=== PATIENT | female | born 1965 | race Caucasian/White ===

== ENCOUNTER 2019-01-11 09:46 | Emergency (ER) | payer MEDICAID ==
[~2019-01-11] VITALS: Ht 157.5 cm; Wt 67.0 kg
[2019-01-11] MEDS ORDERED: METO1TAB25 PO ×2 (11:09→12:41)
[2019-01-11] MEDS ORDERED: LISI-600 PO ×2 (11:09→12:41)
[2019-01-11] MEDS ORDERED: metoprolol tartrate 1mg/ml inj IV ONE ×2 (11:20→13:15)
[2019-01-11 11:31] LABS: BASOPHILS # (AUTO) 0.1 X10'3 (0-0.2); BASOPHILS % (AUTO) 1.1 % (0-1); EOSINOPHILS # (AUTO) 0.1 X10'3 (0-0.9); EOSINOPHILS % (AUTO) 2.4 % (0-6); HEMATOCRIT 40.2 % (35.0-45.0); HEMOGLOBIN 13.7 g/dl (12.0-16.0); LYMPHOCYTES # (AUTO) 1.3 X10'3 (1.1-4.8); LYMPHOCYTES % (AUTO) 23.7 % (21-51); MEAN CORPUSCULAR HEMOGLOBIN 32.1 PG (27.0-31.0); MEAN CORPUSCULAR HGB CONC 34.2 g/dL (33.0-36.5); MEAN PLATELET VOLUME 7.3 FL (7.4-10.4); MONOCYTES # (AUTO) 0.6 X10'3 (0-0.9); MONOCYTES % (AUTO) 11.3 % (2-12); NEUTROPHILS # (AUTO) 3.4 X10'3 (1.8-7.7); NEUTROPHILS % (AUTO) 61.5 % (42-75); PLATELET COUNT 309 X10'3 (140-440); RED BLOOD COUNT 4.28 X10'6 (4.20-5.60); RED CELL DISTRIBUTION WIDTH 14.2 % (11.5-14.5); WHITE BLOOD COUNT 5.6 X10'3 (4.5-11.0)
[2019-01-11 11:50] LABS: PARTIAL THROMBOPLASTIN TIME 24 SECONDS (22-32)
[2019-01-11 12:00] LABS: D-DIMER 0.33 MG/L FEU (0-0.50)
[2019-01-11] MEDS ORDERED: mag hydrox/Alum hydrox/simeth 30ml oral suspension PO ONE (12:10)
[2019-01-11] MEDS ORDERED: LIDOcaine Viscous 15ml cup PO ONE (12:10)
[2019-01-11] MEDS ORDERED: sucralfate 1 gm tablet PO ONE (12:10)
[2019-01-11] MEDS ORDERED: cloNIDine 0.1 mg tablet PO ONE (12:10)
[2019-01-11 12:20] LABS: ALANINE AMINOTRANSFERASE 18 U/L (12-78); ALBUMIN 3.4 G/DL (3.4-5.0); ALBUMIN/GLOBULIN RATIO 0.9 (1.1-1.5); ALKALINE PHOSPHATASE 44 IU/L (46-116); ANION GAP 10 (8-16); ASPARTATE AMINO TRANSFERASE 10 U/L (10-37); BILIRUBIN,TOTAL 0.3 MG/DL (0.1-1.0); BLOOD UREA NITROGEN 20 MG/DL (7-18); BUN/CREATININE RATIO 28.2 (6.6-38.0); CALCIUM 8.9 MG/DL (8.5-10.1); CHLORIDE 101 MMOL/L (99-107); CREATININE 0.71 MG/DL (0.40-0.90); GLUCOSE 98 MG/DL (70-104); POTASSIUM 4.5 MMOL/L (3.5-5.1); SODIUM 136 MMOL/L (135-145); TOTAL CARBON DIOXIDE 25.1 MMOL/L (24-32); eGFR 86 ML/MIN
--- NOTE | 2019-01-11 13:14 | NUR ---
NOTIFIED MD, NO IMPROVEMENT IN B/P, OBTAINED NEW ORDERS
--- NOTE | 2019-01-11 13:15 | NUR ---
PT HAS APPT WITH FIGUER[facility] ESPINO ON [facility] IN FEBRUARY. KNOWS SHE CAN WALK IN WEDNESDAY AND WEDNESDAYS. PT CALLED WHILE WAITING IN ER. PT KNOWS NOT TO RUN OUT OF HOME MEDS.
[2019-01-11 14:03] VITALS: BP 132/84
== END 2019-01-11 14:04 | disposition home or self-care (01) ==
LOC: ER 09:46
DX: I10 Essential (primary) hypertension (principal); R07.89 Other chest pain; G43.909 Migraine, unspecified, not intractable, without status migrainosus; Z90.49 Acquired absence of other specified parts of digestive tract; Z88.6 Allergy status to analgesic agent; Z88.8 Allergy status to other drugs, medicaments and biological substances
CPT/HCPCS: 36415; 71045; 80053; 84484; 85025; 85379; 85610; 85730; 93005; 96374; 96376; 99284; J3490

== ENCOUNTER 2019-09-10 10:09 | Inpatient (IN) | payer MEDICAID ==
[~2019-09-10] VITALS: Ht 154.9 cm; Wt 78.0 kg
[~2019-09-10 10:09] MED LIST: LISI-600 PO; METO1TAB25 PO
[2019-09-10] MEDS ORDERED: aspirin 81mg tab.chew PO ONE (11:15)
[2019-09-10 11:32] LABS: BASOPHILS # (AUTO) 0.1 X10'3 (0-0.2); BASOPHILS % (AUTO) 0.7 % (0-1); EOSINOPHILS # (AUTO) 0.2 X10'3 (0-0.9); EOSINOPHILS % (AUTO) 1.9 % (0-6); HEMATOCRIT 41.4 % (35.0-45.0); HEMOGLOBIN 14.4 g/dl (12.0-16.0); LYMPHOCYTES # (AUTO) 1.7 X10'3 (1.1-4.8); LYMPHOCYTES % (AUTO) 20.7 % (21-51); MEAN CORPUSCULAR HEMOGLOBIN 32.1 PG (27.0-31.0); MEAN CORPUSCULAR HGB CONC 34.9 g/dL (33.0-36.5); MEAN CORPUSCULAR VOLUME 92.2 FL (78-98); MEAN PLATELET VOLUME 7.1 FL (7.4-10.4); MONOCYTES # (AUTO) 0.7 X10'3 (0-0.9); NEUTROPHILS # (AUTO) 5.4 X10'3 (1.8-7.7); NEUTROPHILS % (AUTO) 67.7 % (42-75); PLATELET COUNT 307 X10'3 (140-440); RED BLOOD COUNT 4.49 X10'6 (4.20-5.60); RED CELL DISTRIBUTION WIDTH 15.6 % (11.5-14.5)
[2019-09-10 11:51] LABS: PARTIAL THROMBOPLASTIN TIME 23 SECONDS (22-32)
[2019-09-10 11:53] LABS: ALANINE AMINOTRANSFERASE 22 U/L (12-78); ALBUMIN 3.8 G/DL (3.4-5.0); ALBUMIN/GLOBULIN RATIO 1.1 (1.1-1.5); ALKALINE PHOSPHATASE 44 IU/L (46-116); ANION GAP 7 (8-16); ASPARTATE AMINO TRANSFERASE 14 U/L (10-37); BILIRUBIN,TOTAL 0.3 MG/DL (0.1-1.0); CALCIUM 8.8 MG/DL (8.5-10.1); CHLORIDE 105 MMOL/L (99-107); CREATININE 0.75 MG/DL (0.40-0.90); GLUCOSE 92 MG/DL (70-104); POTASSIUM 4.1 MMOL/L (3.5-5.1); SODIUM 138 MMOL/L (135-145); TOTAL CARBON DIOXIDE 26.5 MMOL/L (24-32); TOTAL PROTEIN 7.3 G/DL (6.4-8.2); eGFR 81 ML/MIN
[2019-09-10 11:55] LABS: BLOOD UREA NITROGEN 16 MG/DL (7-18); BUN/CREATININE RATIO 21.3 (6.6-38.0)
[2019-09-10] MEDS ORDERED: magnesium hydroxide 30ml (MOM) UD suspension PO PRN (13:35)
[2019-09-10] MEDS ORDERED: mag hydrox/Alum hydrox/simeth 30ml oral suspension PO PRN (13:35)
[2019-09-10] MEDS ORDERED: acetaminophen 325mg tablet PO PRN (13:35)
[2019-09-10] MEDS ORDERED: morphine 2 MG/ML inj. syringe IV PRN ×2 (13:35)
[2019-09-10] MEDS ORDERED: ondansetron/PF 4mg/2ml inj IV PRN (13:35)
--- NOTE | 2019-09-10 15:00 | NUR ---
Received patient report from Derek ELIAS in ER.
[2019-09-10 15:05] VITALS: BP 156/99
--- NOTE | 2019-09-10 15:05 | NUR ---
Patient arrived on unit via gurney. Patient alert and oriented, able to communicate needs. Ambulated ad alia to bathroom without difficulty. Will continue to monitor.
[2019-09-10] MEDS: normal saline 1000ml 1,000 ML IV SCH ×2 (15:56→23:31)
[2019-09-10] MEDS ORDERED: LORazepam 2 mg/ml vial IV PRN (18:20)
[2019-09-10] MEDS ORDERED: thiamine 100mg/ml 2ml inj. IV ONE (18:20)
[2019-09-10] MEDS ORDERED: dextrose 50%-water 50ml dispensing syringe IV PRN (18:20)
[2019-09-10] MEDS ORDERED: ATOR20TA PO (18:27)
[2019-09-10] MEDS ORDERED: METO-384 PO (18:27)
--- NOTE | 2019-09-10 18:30 | NUR ---
Patient in room PCU 3012. I have received report from Igna ELIAS and had the opportunity to ask questions and assume patient care.
--- NOTE | 2019-09-10 18:30 | NUR ---
pt resting in bed, alert and oriented, no apparent distress, IV NS at 100 ml/hr infusing through 20g IV in left hand. Lungs clear, bowel sounds present in all quadrants, vital signs stable. Will continue to monitor BP, chest pain. Will provide intervention according to physician orders and protocol.
[2019-09-10] MEDS ORDERED: thiamine inj. 100 MG in normal saline 100ml IV soln 99 ML IV ONE (18:35)
[2019-09-10 19:00] VITALS: BP 144/87
[2019-09-10] MEDS: heparin, porcine 5000 units/ml vial SQ SCH (19:44)
[2019-09-10] MEDS: carvedilol 6.25mg tablet PO SCH (19:45)
[2019-09-10 22:29] VITALS: BP 122/62
[2019-09-11 02:56] VITALS: BP 163/77
[2019-09-11 05:30] LABS: BASOPHILS # (AUTO) 0.1 X10'3 (0-0.2); BASOPHILS % (AUTO) 0.9 % (0-1); EOSINOPHILS # (AUTO) 0.2 X10'3 (0-0.9); EOSINOPHILS % (AUTO) 3.7 % (0-6); HEMATOCRIT 38.5 % (35.0-45.0); HEMOGLOBIN 13.2 g/dl (12.0-16.0); LYMPHOCYTES # (AUTO) 1.9 X10'3 (1.1-4.8); LYMPHOCYTES % (AUTO) 29.4 % (21-51); MEAN CORPUSCULAR HEMOGLOBIN 32.2 PG (27.0-31.0); MEAN CORPUSCULAR HGB CONC 34.3 g/dL (33.0-36.5); MEAN CORPUSCULAR VOLUME 93.9 FL (78-98); MEAN PLATELET VOLUME 7.5 FL (7.4-10.4); MONOCYTES # (AUTO) 0.6 X10'3 (0-0.9); MONOCYTES % (AUTO) 9.7 % (2-12); NEUTROPHILS # (AUTO) 3.6 X10'3 (1.8-7.7); NEUTROPHILS % (AUTO) 56.3 % (42-75); PLATELET COUNT 261 X10'3 (140-440); RED CELL DISTRIBUTION WIDTH 15.7 % (11.5-14.5); WHITE BLOOD COUNT 6.4 X10'3 (4.5-11.0)
[2019-09-11 05:46] LABS: ALBUMIN 3.1 G/DL (3.4-5.0); ANION GAP 6 (8-16); BLOOD UREA NITROGEN 13 MG/DL (7-18); BUN/CREATININE RATIO 19.1 (6.6-38.0); CALCIUM 7.9 MG/DL (8.5-10.1); CHLORIDE 108 MMOL/L (99-107); CREATININE 0.68 MG/DL (0.40-0.90); GLUCOSE 98 MG/DL (70-104); POTASSIUM 4.1 MMOL/L (3.5-5.1); SODIUM 140 MMOL/L (135-145); TOTAL CARBON DIOXIDE 25.7 MMOL/L (24-32); eGFR > 90 ML/MIN
[2019-09-11 06:00] VITALS: BP 138/64
--- NOTE | 2019-09-11 07:13 | NUR ---
Patient in room PCU 3012. I have received report from tara vera and had the opportunity to ask questions and assume patient care.
[2019-09-11] MEDS ORDERED: atorvastatin 20mg tablet PO SCH (08:00)
[2019-09-11] MEDS ORDERED: thiamine 100mg tablet PO SCH (08:00)
[2019-09-11] MEDS ORDERED: aspirin 81mg tablet.DR PO SCH (08:00)
[2019-09-11] MEDS ORDERED: folic acid 1mg tablet PO SCH (08:00)
[2019-09-11] MEDS: carvedilol 6.25mg tablet PO SCH (08:08)
[2019-09-11] MEDS: heparin, porcine 5000 units/ml vial SQ SCH (08:12)
[2019-09-11] MEDS ORDERED: pneumococcal 23-VAL P-sac vacc 25 mcg/0.5ml vial IMVAC ONE (10:00)
[2019-09-11 11:00] VITALS: BP 123/67
[2019-09-11] MEDS: normal saline 1000ml 1,000 ML IV SCH ×2 (11:47→11:56)
[2019-09-12] MEDS ORDERED: LORazepam 1 MG tablet PO PRN (18:20)
[2019-09-12] MEDS ORDERED: LORazepam 2 mg/ml vial IV PRN (18:20)
[2019-09-14] MEDS ORDERED: LORazepam 1 MG tablet PO PRN (18:20)
[2019-09-14] MEDS ORDERED: LORazepam 2 mg/ml vial IV PRN (18:20)
== END 2019-09-11 13:55 | disposition home or self-care (01) | DRG 203 ==
LOC: ER 10:09 → ED HOLD 13:57 → PCU 3S 15:03 → OBSVTOIN 09-11 09:30
PROVIDERS: ADMIT Family Medicine; ATTEND Family Medicine
DX: R07.89 Other chest pain (principal); F10.20 Alcohol dependence, uncomplicated; F17.210 Nicotine dependence, cigarettes, uncomplicated; I10 Essential (primary) hypertension; G43.909 Migraine, unspecified, not intractable, without status migrainosus; Z83.3 Family history of diabetes mellitus; Z82.49 Family history of ischemic heart disease and other diseases of the circulatory system; Z79.899 Other long term (current) drug therapy; Z90.49 Acquired absence of other specified parts of digestive tract; Z28.21 Immunization not carried out because of patient refusal
CPT/HCPCS: 36415; 71045; 80048; 80053; 84484; 85025; 85610; 85730; 87081; 93005; 93306; 96365; 99285; G0378; J1644; J3411; J7030

== ENCOUNTER 2019-12-24 21:36 | Emergency (ER) | payer MEDICAID ==
[~2019-12-24] VITALS: Ht 152.4 cm; Wt 80.5 kg
[~2019-12-24 21:36] MED LIST changes: +ATOR20TA PO; -LISI-600 PO; +METO-384 PO; -METO1TAB25 PO
[2019-12-24] MEDS ORDERED: magnesium oxide 400mg tablet PO ONE (22:05)
[2019-12-24] MEDS ORDERED: aspirin 81mg tab.chew PO ONE (22:05)
[2019-12-24] MEDS ORDERED: magnesium 2GM in 50ml NS 50 ML IV ONE (22:05)
[2019-12-24 22:07] LABS: BASOPHILS # (AUTO) 0.1 X10'3 (0-0.2); BASOPHILS % (AUTO) 1.1 % (0-1); EOSINOPHILS # (AUTO) 0.3 X10'3 (0-0.9); EOSINOPHILS % (AUTO) 3.3 % (0-6); HEMATOCRIT 41.8 % (35.0-45.0); HEMOGLOBIN 14.2 g/dl (12.0-16.0); LYMPHOCYTES # (AUTO) 2.3 X10'3 (1.1-4.8); LYMPHOCYTES % (AUTO) 26.9 % (21-51); MEAN CORPUSCULAR HEMOGLOBIN 32.8 PG (27.0-31.0); MEAN CORPUSCULAR VOLUME 96.3 FL (78-98); MEAN PLATELET VOLUME 7.3 FL (7.4-10.4); MONOCYTES # (AUTO) 0.7 X10'3 (0-0.9); MONOCYTES % (AUTO) 8.4 % (2-12); NEUTROPHILS # (AUTO) 5.2 X10'3 (1.8-7.7); NEUTROPHILS % (AUTO) 60.3 % (42-75); PLATELET COUNT 268 X10'3 (140-440); RED BLOOD COUNT 4.34 X10'6 (4.20-5.60); RED CELL DISTRIBUTION WIDTH 12.8 % (11.5-14.5); WHITE BLOOD COUNT 8.6 X10'3 (4.5-11.0)
[2019-12-24 22:19] LABS: PARTIAL THROMBOPLASTIN TIME 24 SECONDS (22-32)
[2019-12-24 22:22] LABS: ALANINE AMINOTRANSFERASE 21 U/L (12-78); ALBUMIN 3.3 G/DL (3.4-5.0); ALBUMIN/GLOBULIN RATIO 0.9 (1.1-1.5); ALKALINE PHOSPHATASE 45 IU/L (46-116); ANION GAP 11 (8-16); ASPARTATE AMINO TRANSFERASE 19 U/L (10-37); BILIRUBIN,TOTAL 0.2 MG/DL (0.1-1.0); BLOOD UREA NITROGEN 20 MG/DL (7-18); BUN/CREATININE RATIO 24.4 (6.6-38.0); CALCIUM 8.3 MG/DL (8.5-10.1); CHLORIDE 109 MMOL/L (99-107); CREATININE 0.82 MG/DL (0.40-0.90); ETHANOL 0.067 GM/DL (0.0-0.010); GLUCOSE 198 MG/DL (70-104); MAGNESIUM 2.1 MG/DL (1.5-2.4); POTASSIUM 3.6 MMOL/L (3.5-5.1); SODIUM 144 MMOL/L (135-145); TOTAL CARBON DIOXIDE 24.1 MMOL/L (24-32); TOTAL PROTEIN 6.8 G/DL (6.4-8.2); eGFR 73 ML/MIN
[2019-12-24 22:27] LABS: URINE AMPHETAMINE SCREEN NEGATIVE (Neg); URINE BARBITUATE SCREEN NEGATIVE (Neg); URINE BENZODIAZEPINES SCREEN NEGATIVE (Neg); URINE CANNABINOID SCREEN NEGATIVE (Neg); URINE COCAINE SCREEN NEGATIVE (Neg); URINE METHADONE SCREEN NEGATIVE (Neg); URINE OPIATE SCREEN NEGATIVE (Neg); URINE PHENCYCLIDINE SCREEN NEGATIVE (Neg)
[2019-12-24 22:35] LABS: CLARITY,URINE CLEAR (Clear); COLOR,URINE STRAW (Yellow); GLUCOSE, URINE NEGATIVE (Neg); KETONES,URINE NEGATIVE (Neg); LEUKOCYTE ESTERASE ,URINE NEGATIVE (Neg); NITRITES, URINE NEGATIVE (Neg); OCCULT BLOOD,URINE MODERATE (Neg); PROTEIN,URINE NEGATIVE (Neg); UROBILINOGEN,URINE 0.2 E.U/dL (0.2-1.0)
[2019-12-24] MEDS ORDERED: metoprolol tartrate 50mg tablet PO ONE (22:35)
[2019-12-24] MEDS ORDERED: metoprolol tartrate 1mg/ml inj IV ONE (22:35)
[2019-12-24 22:42] LABS: UA COLLECTION TYPE CLN CATCH MIDSTREAM
[2019-12-24 22:51] LABS: BACTERIA,URINE NONE SEEN /HPF (Neg); MUCUS STRANDS NONE SEEN /LPF (Neg); SQUAMOUS EPITHELIAL CELL,UR FEW /LPF (FEW); WBC,URINE NONE SEEN /HPF (0-4)
[2019-12-24 23:06] VITALS: BP 118/76
== END 2019-12-24 23:09 | disposition home or self-care (01) ==
LOC: ER 21:37
DX: I48.0 Paroxysmal atrial fibrillation (principal); G43.909 Migraine, unspecified, not intractable, without status migrainosus; I10 Essential (primary) hypertension; Z90.49 Acquired absence of other specified parts of digestive tract; Z88.5 Allergy status to narcotic agent; Z88.8 Allergy status to other drugs, medicaments and biological substances
CPT/HCPCS: 36415; 71045; 80053; 80305; 80320; 81001; 83735; 84484; 85025; 85610; 85730; 93005; 96365; 99285; J3475

== ENCOUNTER 2020-04-01 08:07 | Inpatient (IN) | payer MEDICAID ==
[~2020-04-01] VITALS: Ht 154.9 cm; Wt 81.8 kg
[2020-04-01] MEDS ORDERED: metoprolol tartrate 1mg/ml inj IV ONE (08:40)
[2020-04-01 08:43] LABS: BASOPHILS # (AUTO) 0.1 X10'3 (0-0.2); BASOPHILS % (AUTO) 0.7 % (0-1); EOSINOPHILS # (AUTO) 0.3 X10'3 (0-0.9); EOSINOPHILS % (AUTO) 4.3 % (0-6); HEMATOCRIT 42.9 % (35.0-45.0); HEMOGLOBIN 14.6 g/dl (12.0-16.0); LYMPHOCYTES # (AUTO) 2.5 X10'3 (1.1-4.8); LYMPHOCYTES % (AUTO) 31.5 % (21-51); MEAN CORPUSCULAR HEMOGLOBIN 32.4 PG (27.0-31.0); MEAN CORPUSCULAR HGB CONC 33.9 g/dL (33.0-36.5); MEAN CORPUSCULAR VOLUME 95.5 FL (78-98); MEAN PLATELET VOLUME 7.1 FL (7.4-10.4); MONOCYTES # (AUTO) 0.7 X10'3 (0-0.9); MONOCYTES % (AUTO) 9.3 % (2-12); NEUTROPHILS # (AUTO) 4.3 X10'3 (1.8-7.7); NEUTROPHILS % (AUTO) 54.2 % (42-75); PLATELET COUNT 319 X10'3 (140-440); RED BLOOD COUNT 4.49 X10'6 (4.20-5.60); RED CELL DISTRIBUTION WIDTH 13.7 % (11.5-14.5); WHITE BLOOD COUNT 7.9 X10'3 (4.5-11.0)
[2020-04-01 08:54] LABS: ALANINE AMINOTRANSFERASE 27 U/L (12-78); ALBUMIN 3.8 G/DL (3.4-5.0); ALKALINE PHOSPHATASE 55 IU/L (46-116); ANION GAP 9 (8-16); ASPARTATE AMINO TRANSFERASE 17 U/L (10-37); BILIRUBIN,TOTAL 0.3 MG/DL (0.1-1.0); BLOOD UREA NITROGEN 11 MG/DL (7-18); BUN/CREATININE RATIO 12.1 (6.6-38.0); CHLORIDE 105 MMOL/L (99-107); CREATININE 0.91 MG/DL (0.40-0.90); GLUCOSE 152 MG/DL (70-104); SODIUM 141 MMOL/L (135-145); TOTAL CARBON DIOXIDE 26.9 MMOL/L (24-32); TOTAL PROTEIN 7.7 G/DL (6.4-8.2); eGFR 65 ML/MIN
[2020-04-01] MEDS ORDERED: diltiazem-D5W 125mg/125ml 125 ML IV ONE (09:23)
[2020-04-01] MEDS ORDERED: diltiazem 5mg/ml 5ml inj. IV ONE (09:25)
[2020-04-01] MEDS ORDERED: diltiazem-NS 100mg/100ml 100 ML IV ONE (09:28)
[2020-04-01 09:50] LABS: URINE AMPHETAMINE SCREEN NEGATIVE (Neg); URINE BARBITUATE SCREEN NEGATIVE (Neg); URINE BENZODIAZEPINES SCREEN NEGATIVE (Neg); URINE CANNABINOID SCREEN NEGATIVE (Neg); URINE COCAINE SCREEN NEGATIVE (Neg); URINE METHADONE SCREEN NEGATIVE (Neg); URINE OPIATE SCREEN NEGATIVE (Neg); URINE PHENCYCLIDINE SCREEN NEGATIVE (Neg)
[2020-04-01 09:51] LABS: MAGNESIUM 1.8 MG/DL (1.5-2.4)
[2020-04-01] MEDS ORDERED: magnesium 2GM in 50ml NS 50 ML IV PRN (10:35)
[2020-04-01] MEDS ORDERED: potassium CL 10mEq/100ml bag 100 ML IV PRN ×2 (10:35)
[2020-04-01] MEDS ORDERED: ondansetron/PF 4mg/2ml inj IV PRN (10:35)
[2020-04-01] MEDS ORDERED: potassium Cl 20 mEq SR tablet PO PRN ×2 (10:35)
[2020-04-01] MEDS ORDERED: magnesium Cl slow-release 64mg tablet PO PRN (10:35)
[2020-04-01] MEDS ORDERED: magnesium 4gm in 100ml NS 100 ML IV PRN (10:35)
[2020-04-01] MEDS ORDERED: acetaminophen 325mg tablet PO PRN (10:35)
[2020-04-01 11:00] VITALS: BP 125/72
--- NOTE | 2020-04-01 12:03 | NUR ---
promotional table spacer promotional table spacer Page Sent promotional table spacer PAGER ID: [phone] MESSAGE: Cali [id number], Nicole. Patient is on Cardizem gtt @ 5 and is currently in SR in high 50s, would you like to stop the gtt. Also will need a Cardizem gtt order for the floor if you want to keep it. Thanks, Inga [phone]
[2020-04-01] MEDS ORDERED: LISI40TA4 PO (12:50)
[2020-04-01] MEDS ORDERED: LISI-600 PO (12:50)
[2020-04-01] MEDS ORDERED: METO-411 PO (12:50)
[2020-04-01] MEDS ORDERED: APIX5TAB3 PO (12:50)
[2020-04-01] MEDS ORDERED: NICO2GUM29 PO (12:50)
[2020-04-01] MEDS ORDERED: diltiazem 60mg tablet PO SCH (13:00)
[2020-04-01] MEDS: diltiazem 30mg tablet PO SCH ×2 (13:00→20:53)
[2020-04-01 18:49] VITALS: BP 122/79
[2020-04-01 19:00] VITALS: BP 142/78
--- NOTE | 2020-04-01 19:13 | NUR ---
Problems reprioritized. Patient report given, questions answered & plan of care reviewed with Memo ELIAS. Patient stable at transfer of care, bedside report complete.
--- NOTE | 2020-04-01 19:32 | NUR ---
Patient in room PCU 3023A. I have received report from CURT HUBBARD and had the opportunity to ask questions and assume patient care. PATIENT ON ROOM AIR AND SALINE LOCKED. PATIENT OFFERS NO COMPLAINTS AT THIS TIME. WILL CONTINUE TO MONITOR CLOSELY.
[2020-04-01] MEDS: K and/or MAG REPLACEMENT MC SCH (20:00)
[2020-04-01] MEDS: docusate sod 100mg capsule PO SCH (20:00)
[2020-04-01 22:36] VITALS: BP 153/90
[2020-04-02] VITALS (12 sets, daily range): BP systolic 136–161; BP diastolic 73–90
[2020-04-02 05:58] LABS: ALBUMIN 3.3 G/DL (3.4-5.0); ANION GAP 6 (8-16); BLOOD UREA NITROGEN 11 MG/DL (7-18); BUN/CREATININE RATIO 13.8 (6.6-38.0); CALCIUM 8.8 MG/DL (8.5-10.1); CHLORIDE 103 MMOL/L (99-107); GLUCOSE 106 MG/DL (70-104); MAGNESIUM 1.9 MG/DL (1.5-2.4); POTASSIUM 4.8 MMOL/L (3.5-5.1); SODIUM 139 MMOL/L (135-145); TOTAL CARBON DIOXIDE 30.2 MMOL/L (24-32); eGFR 75 ML/MIN
[2020-04-02 06:05] LABS: BASOPHILS # (AUTO) 0.1 X10'3 (0-0.2); BASOPHILS % (AUTO) 0.8 % (0-1); EOSINOPHILS # (AUTO) 0.2 X10'3 (0-0.9); EOSINOPHILS % (AUTO) 3.6 % (0-6); HEMATOCRIT 39.2 % (35.0-45.0); HEMOGLOBIN 13.5 g/dl (12.0-16.0); LYMPHOCYTES % (AUTO) 29.9 % (21-51); MEAN CORPUSCULAR HEMOGLOBIN 32.9 PG (27.0-31.0); MEAN CORPUSCULAR HGB CONC 34.4 g/dL (33.0-36.5); MEAN CORPUSCULAR VOLUME 95.9 FL (78-98); MEAN PLATELET VOLUME 7.1 FL (7.4-10.4); MONOCYTES # (AUTO) 0.6 X10'3 (0-0.9); MONOCYTES % (AUTO) 8.7 % (2-12); NEUTROPHILS # (AUTO) 3.9 X10'3 (1.8-7.7); PLATELET COUNT 275 X10'3 (140-440); RED BLOOD COUNT 4.09 X10'6 (4.20-5.60); RED CELL DISTRIBUTION WIDTH 13.5 % (11.5-14.5); WHITE BLOOD COUNT 6.8 X10'3 (4.5-11.0)
--- NOTE | 2020-04-02 06:31 | NUR ---
Patient in room PCU 3023. I have received report from Memo ELIAS and had the opportunity to ask questions and assume patient care.
--- NOTE | 2020-04-02 06:32 | NUR ---
Problems reprioritized. Patient report given, questions answered & plan of care reviewed with CURT GEORGES.
[2020-04-02] MEDS: K and/or MAG REPLACEMENT MC SCH (07:08)
[2020-04-02] MEDS: docusate sod 100mg capsule PO SCH (08:24)
[2020-04-02] MEDS: diltiazem 30mg tablet PO SCH ×2 (08:24→15:23)
[2020-04-02] MEDS ORDERED: metoprolol tartrate 1mg/ml inj IV PRN (09:30)
[2020-04-02] MEDS ORDERED: nitroGLYCERIN 0.4mg SUBLingual tab SL PRN (09:30)
[2020-04-02] MEDS ORDERED: regadenoson 0.4mg/5ml syringe IV PRN (09:30)
[2020-04-02] MEDS ORDERED: pneumococcal 23-VAL P-sac vacc 25 mcg/0.5ml vial IMVAC ONE (10:00)
[2020-04-02] MEDS: aminophylline 250mg/10ml inj. IV PRN ×2 (13:42→14:29)
--- NOTE | 2020-04-02 15:32 | NUR ---
Paged Dr. Gordon. Elaine Rivera, [id number]. COBY HAGEN ready for review. Echo being done at bedside now. Javid [phone]
--- NOTE | 2020-04-02 17:25 | NUR ---
patient safe for discharge per MD orders, discharge instructions reviewed with patient and questions answered, no new prescriptions, tele and IV DC, patient meds picked up from pharmacy, clothing and wallet stayed with patient, patient wheeled to lobby, picked up in personal vehicle by family.
== END 2020-04-02 17:40 | disposition home or self-care (01) | DRG 201 ==
LOC: ER 08:07 → ED HOLD 10:31 → PCU 3S 11:44
PROVIDERS: ADMIT Internal Medicine; ATTEND Internal Medicine
PROC: 3E0234Z Introduction of Serum, Toxoid and Vaccine into Muscle, Percutaneous Approach (ICD-10-PCS; principal; 2020-04-02)
PROC: 4A02XM4 Measurement of Cardiac Total Activity, External Approach (ICD-10-PCS; 2020-04-02)
PROC: 3E073KZ Introduction of Other Diagnostic Substance into Coronary Artery, Percutaneous Approach (ICD-10-PCS; 2020-04-02)
DX: I48.0 Paroxysmal atrial fibrillation (principal); E78.5 Hyperlipidemia, unspecified; G43.909 Migraine, unspecified, not intractable, without status migrainosus; I10 Essential (primary) hypertension; Z23 Encounter for immunization; Z90.49 Acquired absence of other specified parts of digestive tract; Z79.899 Other long term (current) drug therapy; Z88.8 Allergy status to other drugs, medicaments and biological substances
CPT/HCPCS: 36415; 71045; 78452; 80048; 80053; 80305; 83735; 83880; 84484; 85025; 87081; 90732; 93005; 93017; 93306; 96365; 96375; 96376; 99291; A9500; G0378; J0280; J2785; J3490

== ENCOUNTER → 2022-12-04 | Outpatient (CLI) | payer MEDICAID, OTHER ==
[~2022-12-04] MED LIST changes: +APIX5TAB3 PO; +ASPI81TA52 PO; +LISI20TA28 PO; -METO-384 PO; +METO-411 PO; +NICO2GUM29 PO
[2022-12-04 14:58] LABS: BASOPHILS # (AUTO) 0.1 X10'3 (0-0.2); EOSINOPHILS # (AUTO) 0.3 X10'3 (0-0.9); EOSINOPHILS % (AUTO) 4.6 % (0-6); LYMPHOCYTES # (AUTO) 1.4 X10'3 (1.1-4.8); LYMPHOCYTES % (AUTO) 20.9 % (21-51); MEAN CORPUSCULAR HEMOGLOBIN 32.5 PG (27.0-31.0); MEAN CORPUSCULAR HGB CONC 33.8 g/dL (33.0-36.5); MEAN CORPUSCULAR VOLUME 96.1 FL (78-98); MEAN PLATELET VOLUME 6.9 FL (7.4-10.4); MONOCYTES # (AUTO) 0.6 X10'3 (0-0.9); MONOCYTES % (AUTO) 8.5 % (2-12); NEUTROPHILS # (AUTO) 4.4 X10'3 (1.8-7.7); PRE OP HEMATOCRIT 41.3 % (35.0-45.0); PRE OP PLATELET COUNT 306 X10'3 (140-440); RED BLOOD COUNT 4.29 X10'6 (4.20-5.60); RED CELL DISTRIBUTION WIDTH 13.3 % (11.5-14.5)
[2022-12-04 15:08] LABS: ALBUMIN 3.9 G/DL (3.4-5.0); ALKALINE PHOSPHATASE 65 IU/L (46-116); BLOOD UREA NITROGEN 11 MG/DL (7-18); BUN/CREATININE RATIO 16.9 (6.6-38.0); CALCIUM 8.9 MG/DL (8.5-10.1); CHLORIDE 104 MMOL/L (99-107); CREATININE 0.65 MG/DL (0.40-0.90); PRE OP ALT 50 U/L (30-65); PRE OP ANION GAP 9 (8-16); PRE OP AST 30 U/L (10-37); PRE OP BILIRUB, TOTAL 0.3 MG/DL (0.0-1.0); PRE OP GLUCOSE 110 MG/DL (70-104); PRE OP SODIUM 142 MMOL/L (135-145); TOTAL CARBON DIOXIDE 29.1 MMOL/L (24-32); TOTAL PROTEIN 7.7 G/DL (6.4-8.2); eGFR > 90 ML/MIN
== END | disposition home or self-care (01) ==
LOC: LAB 13:51 → EDSTATUS 12-09 15:00
PROVIDERS: ATTEND Orthopaedic Surgery
DX: Z01.818 Encounter for other preprocedural examination (principal); S52.122A Displaced fracture of head of left radius, initial encounter for closed fracture; G47.30 Sleep apnea, unspecified; I10 Essential (primary) hypertension; I48.91 Unspecified atrial fibrillation; E78.5 Hyperlipidemia, unspecified; F17.210 Nicotine dependence, cigarettes, uncomplicated; Z88.5 Allergy status to narcotic agent; Z79.899 Other long term (current) drug therapy; Z90.49 Acquired absence of other specified parts of digestive tract; Z98.890 Other specified postprocedural states; Z83.3 Family history of diabetes mellitus; Z82.49 Family history of ischemic heart disease and other diseases of the circulatory system; Z80.9 Family history of malignant neoplasm, unspecified; X58.XXXA Exposure to other specified factors, initial encounter; Y92.89 Other specified places as the place of occurrence of the external cause; Y93.89 Activity, other specified; Y99.8 Other external cause status
CPT/HCPCS: 36415; 80053; 85025; 93005

== ENCOUNTER 2023-02-17 09:52 | Day surgery (SDC) | payer OTHER ==
[2023-02-11 15:49] LABS: BASOPHILS # (AUTO) 0.1 X10'3 (0-0.2); BASOPHILS % (AUTO) 0.9 % (0-1); EOSINOPHILS # (AUTO) 0.3 X10'3 (0-0.9); MEAN CORPUSCULAR HEMOGLOBIN 32.4 PG (27.0-31.0); MEAN CORPUSCULAR VOLUME 95.3 FL (78-98); MEAN PLATELET VOLUME 6.8 FL (7.4-10.4); MONOCYTES # (AUTO) 0.7 X10'3 (0-0.9); MONOCYTES % (AUTO) 8.3 % (2-12); NEUTROPHILS # (AUTO) 4.9 X10'3 (1.8-7.7); NEUTROPHILS % (AUTO) 61.8 % (42-75); PRE OP HEMATOCRIT 41.9 % (35.0-45.0); PRE OP HEMOGLOBIN 14.3 g/dL (12.0-16.0); PRE OP PLATELET COUNT 295 X10'3 (140-440); RED CELL DISTRIBUTION WIDTH 13.1 % (11.5-14.5)
[2023-02-11 15:56] LABS: ALBUMIN 3.8 G/DL (3.4-5.0); ALBUMIN/GLOBULIN RATIO 1.1 (1.1-1.5); ALKALINE PHOSPHATASE 68 IU/L (46-116); BLOOD UREA NITROGEN 14 MG/DL (7-18); BUN/CREATININE RATIO 22.6 (10.0-20.0); CALCIUM 9.4 MG/DL (8.5-10.1); CHLORIDE 107 MMOL/L (99-107); CREATININE 0.62 MG/DL (0.40-0.90); PRE OP ALT 69 U/L (30-65); PRE OP ANION GAP 4 (8-16); PRE OP AST 28 U/L (10-37); PRE OP BILIRUB, TOTAL 0.3 MG/DL (0.0-1.0); PRE OP GLUCOSE 112 MG/DL (70-104); PRE OP POTASSIUM 3.7 MMOL/L (3.4-5.1); PRE OP SODIUM 140 MMOL/L (135-145); TOTAL CARBON DIOXIDE 29.3 MMOL/L (24-32); TOTAL PROTEIN 7.4 G/DL (6.4-8.2); eGFR > 90 ML/MIN
[2023-02-17] VITALS (10 sets, daily range): BP systolic 102–151; BP diastolic 63–88
[~2023-02-17] VITALS: Ht 152.4 cm; Wt 85.1 kg
[~2023-02-17 09:52] MED LIST changes: +AMLO1CAP10 PO; -APIX5TAB3 PO; -LISI20TA28 PO; -METO-411 PO; -NICO2GUM29 PO; +albuterol 2.5 MG/3 ML nebule NEB ONE; +cefazolin 2gm/D5W 100mL 100 ML IV ONE; +famotidine 20mg tablet PO ONE; +ringers solution, lacted 1,000 ML IV SCH; +tranexamic acid inj. 1,000 MG in normal saline IV soln 100ML IV ONE; +vancomycin 1,500 MG in NS 300ml IV soln IV ONE
[2023-02-17] MEDS ORDERED: cloNIDine hcl/PF 100mcg/ml inj ONE (11:29)
[2023-02-17] MEDS ORDERED: fentaNYL/PF 50MCG/1 ML 2ML syringe ONE (11:32)
[2023-02-17] MEDS ORDERED: midazolam 1 mg/ML 2ml injection ONE (11:32)
[2023-02-17] MEDS ORDERED: vancomycin 1,000mg inj ONE (11:33)
--- NOTE | 2023-02-17 11:43 | NUR ---
OUTPATIENT SOC CHARTED AT THE WRONG TIME; SHOULD HAVE BEEN FOR 1000 AM NOT 1130. Addendum: 02/17/23 at 1144 by Debora High RN Amended: Links added.
[2023-02-17] MEDS ORDERED: propofol inj 20 ML IV ONE ×2 (12:25→12:58)
[2023-02-17] MEDS ORDERED: LIDOcaine 1%/PF 5ML 10 MG/ML VIAL ONE (12:25)
[2023-02-17] MEDS ORDERED: LIDOcaine 2% (20mg/ml) 5ml vial ONE ×2 (12:25→12:31)
[2023-02-17] MEDS ORDERED: ROPIVAcaine 0.5% (5mg/ml) 30ml vial ONE ×3 (12:25→12:58)
[2023-02-17] MEDS ORDERED: rocuronium 10mg/ml inj IV ONE (12:25)
[2023-02-17] MEDS ORDERED: dexamethasone sod phosphate 4mg/ml inj. ONE (12:26)
[2023-02-17] MEDS ORDERED: ondansetron/PF 4mg/2ml inj ONE (12:28)
[2023-02-17] MEDS ORDERED: fentaNYL /PF 50mcg/ml 5ml ampule ONE (12:58)
[2023-02-17] MEDS ORDERED: ondansetron/PF 4mg/2ml inj IV PRN (13:05)
[2023-02-17] MEDS ORDERED: proCHLORperazine 10 MG/2 ml inj IV PRN (13:05)
[2023-02-17] MEDS ORDERED: labetalol 20mg/4ml (5mg/ml) syringe IV PRN (13:05)
[2023-02-17] MEDS ORDERED: hydrALAZINE 20mg/ml inj. IV PRN (13:05)
[2023-02-17] MEDS ORDERED: acetaminophen 1,000mg/100ml IV 100 ML IV PRN (13:05)
[2023-02-17] MEDS ORDERED: meperidine/PF 25mg/ml syringe IV PRN ×3 (13:05)
[2023-02-17] MEDS ORDERED: morphine 4 MG/ML inj SYRINge IV PRN (13:05)
[2023-02-17] MEDS ORDERED: ringers solution, lacted 1,000 ML IV SCH (13:05)
[2023-02-17] MEDS ORDERED: morphine 2 MG/ML inj. syringe IV PRN (13:05)
--- NOTE | 2023-02-17 13:47 | NUR ---
Received from OR via , accompanied by Anesthesiologist LYNNETTE AND OR NURSE and report given by Anesthesiolgist. PT IS SLIGHTLY DROWSY YET ABLE TO VERBALIZE NEEDS; DENIES PAIN OR DISCOMFORT. LEFT ARM WITH GAUZE AND RASHID WRAP IN A BRACE/IMMOBILIZER. 20G TO RT FOREARM. VSS Addendum: 02/17/23 at 1409 by Ivone Hampton RN Amended: Links added.
--- NOTE | 2023-02-17 15:07 | NUR ---
I HAVE REVIEWED D/C INSTRUCTIONS WITH PATIENT AND THEY HAVE VERBALIZED UNDERSTANDING OF INSTRUCTIONS. PATIENT D/C HOME WITH ALL BELONGINGS AND FAMILY GAVE TRANSPORT Addendum: 02/17/23 at 1528 by Ivone Hampton RN Amended: Links added.
== END 2023-02-17 15:07 | disposition home or self-care (01) ==
LOC: PRE-OP 09:52
PROVIDERS: ATTEND Orthopaedic Surgery
DX: S52.122P Displaced fracture of head of left radius, subsequent encounter for closed fracture with malunion (principal); M19.022 Primary osteoarthritis, left elbow; I10 Essential (primary) hypertension; G47.33 Obstructive sleep apnea (adult) (pediatric); E66.9 Obesity, unspecified; Z68.36 Body mass index [BMI] 36.0-36.9, adult; I48.91 Unspecified atrial fibrillation; E78.5 Hyperlipidemia, unspecified; F17.210 Nicotine dependence, cigarettes, uncomplicated; G89.18 Other acute postprocedural pain; Z79.899 Other long term (current) drug therapy; Z79.82 Long term (current) use of aspirin; Z88.5 Allergy status to narcotic agent; Z90.49 Acquired absence of other specified parts of digestive tract; Z98.890 Other specified postprocedural states; Z88.8 Allergy status to other drugs, medicaments and biological substances; Z82.49 Family history of ischemic heart disease and other diseases of the circulatory system; Z83.3 Family history of diabetes mellitus; X58.XXXD Exposure to other specified factors, subsequent encounter
CPT/HCPCS: 24365; 36415; 64415; 71046; 80053; 82948; 85025; 94640; 94760; C1713; J0690; J0735; J1100; J2250; J2405; J2704; J2795; J3010; J3370; J3490; J7030; J7120; Z7506; Z7508; Z7512; A4565; A4615; A4618; A7000